=== PATIENT | female | born 1980 ===

== ENCOUNTER → 2018-11-23 | Outpatient (REF) | payer BC | LOC: ZZSTITCHES 10:21 | PROVIDERS: ATTEND Physician Assistant | DX: N91.2 Amenorrhea, unspecified (principal) | CPT/HCPCS: 84703 ==

== ENCOUNTER → 2018-11-29 | Outpatient (CLI) | payer BC ==
[~2018-11-29] MED LIST: PREN-127 PO
[2018-11-29 09:45] LABS: PLATELET COUNT, AUTOMATED 262 K/uL (150-450)
== END ==
LOC: LAB 08:03
PROVIDERS: ATTEND Student in an Organized Health Care Education/Training Program
DX: Z34.81 Encounter for supervision of other normal pregnancy, first trimester (principal); B96.89 Other specified bacterial agents as the cause of diseases classified elsewhere
CPT/HCPCS: 36415; 81001; 84702; 85025; 86592; 86703; 86762; 86850; 86900; 86901; 87077; 87088; 87186; 87340

== ENCOUNTER → 2018-12-03 | Outpatient (CLI) | payer BC | LOC: LAB 09:13 | PROVIDERS: ATTEND Student in an Organized Health Care Education/Training Program | DX: O09.511 Supervision of elderly primigravida, first trimester (principal) | CPT/HCPCS: 87491; 87591 ==

== ENCOUNTER 2018-12-08 22:02 | Emergency (ER) | payer BC ==
--- NOTE | 2018-12-08 22:15 | ER Report ---
History and Physical Time Seen By MD: 22:14 Hx. of Stated Complaint: PATIENT REPORTS BLEEDING AT 6 WEEKS GESTATION THAT STARTED AT 1400. BELIEVES SHE IS HAVING A MISCARRIAGE HPI/ROS CHIEF COMPLAINT: vaginal bleeding, 6 weeks HISTORY OF PRESENT ILLNESS: This is a 38 year old female. She had onset of vaginal bleeding today at about 1400 hours. Is , uncertain exact dates, thinks about 6 weeks, has seen WEIGHT ANALYST with workup for new underway. Having some lower abdominal/pelvic cramping. No problems going to the bathroom with urination or bowels. No fevers or chills. Passes what appeared to be a large clot this afternoon. Allergies: Coded Allergies: No Known Drug Allergies (Unverified , 12/08/18) Home Meds Active Scripts Hydrocodone Bit/Acetaminophen (HYDROCODON-ACETAMINOPHEN 5-325) 1 Each Tablet, 1 EACH PO Q4H PRN for PAIN, #12 TAB 0 Refills Prov:DINA BERNAL MD 12/09/18 Reported Medications Vits W-Ca,Fe,Fa(<1MG) ( VITAMINS) 1 Each Tablet, 1 EACH PO DAILY, TAB 11/29/18 Reviewed Nurses Notes: Yes Smoking Status: Current: Every Day Smoker Exposure to Second Hand Smoke?: No Constitutional Vital Sign - Last 24 Hours 12/08/18 12/08/18 12/08/18 12/08/18 22:02 22:07 22:10 22:30 Temp 98.5 Pulse ??? 89 Resp 15 B/P (MAP) 126/78 126/78 (94) 106/66 (79) Pulse Ox 95 O2 Delivery Room Air 12/08/18 12/08/18 12/08/18 12/08/18 22:32 23:00 23:02 23:07 Pulse 81 86 83 B/P (MAP) 104/78 (87) Pulse Ox 95 94 94 12/08/18 12/09/18 23:37 00:00 Pulse 88 B/P (MAP) 108/94 (99) Pulse Ox 96 Physical Exam General Appearance: Alert, anxious ENT: Moist mucous membranes. Respiratory: Breathing easily. Cardiac: regular rate and rhythm. Normal peripheral perfusion. Gastrointestinal: Abdomen is soft and non tender, no masses, bowel sounds normal. Skin: No rashes or lesions. Pelvic exam: The vulva was normal no lesions. The vagina did not have significant discharge, did have a small amount of brownish blood in posterior vagina. The cervix was closed, small blood oozing. The uterus was normal size and non tender. The adnexa had no masses and no tenderness. The exam was performed with a road cutter. DIFFERENTIAL DIAGNOSIS: After history and physical exam differential diagnosis was considered for vaginal bleeding in , concerning for miscarriage, threatened. Medical Decision Making Data Points Result Diagram: 12/08/18223712/08/182237 Laboratory Hematology Test 12/08/18 22:38 Red Blood Count 4.71 M/uL (4.17-5.56) Mean Corpuscular Volume 90.5 fL (80.0-96.0) Mean Corpuscular Hemoglobin 30.8 pg (26.0-33.0) Mean Corpuscular Hemoglobin Concent 34.1 g/dL (32.0-36.0) Red Cell Distribution Width 13.3 % (11.5-14.5) Mean Platelet Volume 8.3 fL (7.2-11.1) Neutrophils (%) (Auto) 72.7 % (39.4-72.5) Lymphocytes (%) (Auto) 19.8 % (17.6-49.6) Monocytes (%) (Auto) 5.1 % (4.1-12.4) Eosinophils (%) (Auto) 1.3 % (0.4-6.7) Basophils (%) (Auto) 1.1 % (0.3-1.4) Nucleated RBC Relative Count (auto) 0.0 /100WBC Neutrophils # (Auto) 9.8 K/uL (2.0-7.4) Lymphocytes # (Auto) 2.7 K/uL (1.3-3.6) Monocytes # (Auto) 0.7 K/uL (0.3-1.0) Eosinophils # (Auto) 0.2 K/uL (0.0-0.5) Basophils # (Auto) 0.2 K/uL (0.0-0.1) Nucleated RBC Absolute Count (auto) 0.00 K/uL Prothrombin Time 12.6 seconds (12.0-14.4) Prothromb Time International Ratio 0.94 Activated Partial Thromboplast Time 34 seconds (23-35) Sodium Level 138 mmol/L (137-145) Potassium Level 3.6 mmol/L (3.5-5.0) Chloride Level 105 mmol/L (98-107) Carbon Dioxide Level 21 mmol/L (22-31) Blood Urea Nitrogen 6 mg/dl (7-18) Creatinine 0.60 mg/dl (0.52-1.04) Glomerular Filtration Rate Calc > 60.0 Random Glucose 93 mg/dl (75-110) Calcium Level 9.5 mg/dl (8.4-10.2) Total Bilirubin 0.4 mg/dl (0.2-1.3) Aspartate Amino Transf (AST/SGOT) 18 U/L (0-35) Alanine Aminotransferase (ALT/SGPT) 34 U/L (0-56) Alkaline Phosphatase 72 U/L (0-126) Total Protein 7.1 g/dl (6.3-8.2) Albumin 4.3 g/dl (3.5-5.0) Human Chorionic Gonadotropin, Quant 3403 mIU/ml Chemistry Test 12/08/18 22:38 White Blood Count 13.4 k/uL (4.5-11.0) Red Blood Count 4.71 M/uL (4.17-5.56) Hemoglobin 14.5 g/dL (12.0-16.0) Hematocrit 42.6 % (34.0-47.0) Mean Corpuscular Volume 90.5 fL (80.0-96.0) Mean Corpuscular Hemoglobin 30.8 pg (26.0-33.0) Mean Corpuscular Hemoglobin Concent 34.1 g/dL (32.0-36.0) Red Cell Distribution Width 13.3 % (11.5-14.5) Platelet Count 296 K/uL (150-450) Mean Platelet Volume 8.3 fL (7.2-11.1) Neutrophils (%) (Auto) 72.7 % (39.4-72.5) Lymphocytes (%) (Auto) 19.8 % (17.6-49.6) Monocytes (%) (Auto) 5.1 % (4.1-12.4) Eosinophils (%) (Auto) 1.3 % (0.4-6.7) Basophils (%) (Auto) 1.1 % (0.3-1.4) Nucleated RBC Relative Count (auto) 0.0 /100WBC Neutrophils # (Auto) 9.8 K/uL (2.0-7.4) Lymphocytes # (Auto) 2.7 K/uL (1.3-3.6) Monocytes # (Auto) 0.7 K/uL (0.3-1.0) Eosinophils # (Auto) 0.2 K/uL (0.0-0.5) Basophils # (Auto) 0.2 K/uL (0.0-0.1) Nucleated RBC Absolute Count (auto) 0.00 K/uL Prothrombin Time 12.6 seconds (12.0-14.4) Prothromb Time International Ratio 0.94 Activated Partial Thromboplast Time 34 seconds (23-35) Glomerular Filtration Rate Calc > 60.0 Calcium Level 9.5 mg/dl (8.4-10.2) Total Bilirubin 0.4 mg/dl (0.2-1.3) Aspartate Amino Transf (AST/SGOT) 18 U/L (0-35) Alanine Aminotransferase (ALT/SGPT) 34 U/L (0-56) Alkaline Phosphatase 72 U/L (0-126) Total Protein 7.1 g/dl (6.3-8.2) Albumin 4.3 g/dl (3.5-5.0) Human Chorionic Gonadotropin, Quant 3403 mIU/ml Coagulation Test 12/08/18 22:38 Prothrombin Time 12.6 seconds Prothromb Time International Ratio 0.94 Activated Partial Thromboplast Time 34 seconds EKG/Imaging Imaging OB Ultrasound < 14 weeks Additional Pertinent history: Vaginal bleeding. Six-week . COMPARISON STUDIES: December 03, 2018. FINDINGS: Gestational sac: Visualized measuring 2.32 cm in mean sac diameter. Gestational sac appears to demonstrate abnormal funneling. There is a nonspecific adjacent small cystic structure. Yolk sac: Not visualized pole: Not visualized Estimated gestational age: 7 weeks and 3 days based on average sac diameter Uterus: Heterogeneous endometrial material, most compatible with blood products. Maternal ovaries: Corpus luteum within the right ovary. Left ovary is absent. Adnexa: No adnexal mass lesion or focal abnormality. Free pelvic fluid: none IMPRESSION: 1. Findings most compatible with an in progress. There is irregular gestational sac without pole which was present on a prior exam from December 03, 2018. Blood products noted within the mid/lower endometrium. Report Dictated By: Luis Eduardo Gordon MD at 12/08/2018 11:49 PM ED Course/Re-evaluation Clinical Indication for ER IV: IV Access ED Course Labs unremarkable. Patient blood type A positive in OB notes. Ultrasound shows abnormal gestational sac location, debris in uterus and now absent pole, all c/w incomplete miscarriage. Discussed this with the patient. recommended follow-up with Dr. Blunt's office. Discussed what to expect with a miscarriage. Ibuprofen and Lortab as needed for pain. Decision to Disposition Date: Dec 09, 2018 Decision to Disposition Time: 00:04 Depart Departure Latest Vital Signs Vital Signs Date Time Temp Pulse Resp B/P (MAP) Pulse Ox O2 Delivery O2 Flow Rate FiO2 12/09/18 00:00 108/94 (99) 12/08/18 23:37 88 96 12/08/18 22:07 98.5 15 Room Air Impression: Primary Impression: Incomplete miscarriage Condition: Improved Disposition: HOME OR SELF-CARE Referrals: TIM BLUNT DO (PCP) New Scripts Hydrocodone Bit/Acetaminophen (HYDROCODON-ACETAMINOPHEN 5-325) 1 Each Tablet 1 EACH PO Q4H PRN for PAIN, #12 TAB 0 Refills Prov: DIAN BERNAL MD 12/09/18 Patient Instructions: Miscarriage (ED) Additional Instructions: You're having a miscarriage. You can expect passing further blood, clots, and tissue during this time. You can also expect further cramping pelvic pain. Ibuprofen 200mg over the counter tablets, take 4 tablets three times a day with food. Lortab 5/325, one every 4 hours as needed for pain. Call your WEIGHT ANALYST's office in the morning and let them know you're here in the ER and that you're having a miscarriage. DIAN BERNAL MD Dec 08, 2018 22:15
[2018-12-08 22:49] LABS: PLATELET COUNT, AUTOMATED 296 K/uL (150-450)
[2018-12-08 23:06] LABS: INR 0.94
[2018-12-09] VITALS: BP 108/94
--- NOTE | 2018-12-09 00:02 | RADIOLOGY IMAGING REPORT ---
FACILITY: [facility] - [place] PATIENT NAME: Bobbi Pratt : 1980 MR: [id number] V: [id number] EXAM DATE: [id number] ORDERING PHYSICIAN: DIAN BERNAL TECHNOLOGIST: Location: [facility] - [place] Patient: Bobbi Pratt : 1980 Visit/Account:[id number] Date of Sevice: 12/08/2018 OB Ultrasound < 14 weeks Additional Pertinent history: Vaginal bleeding. Six-week . COMPARISON STUDIES: December 03, 2018. FINDINGS: Gestational sac: Visualized measuring 2.32 cm in mean sac diameter. Gestational sac appears to demons trate abnormal funneling. There is a nonspecific adjacent small cystic structure. Yolk sac: Not visualized pole: Not visualized Estimated gestational age: 7 weeks and 3 days based on average sac diameter Uterus: Heterogeneous endometrial material, most compatible with blood products. Maternal ovaries: Corpus luteum within the right ovary. Left ovary is absent. Adnexa: No adnexal mass lesion or focal abnormality. Free pelvic fluid: none IMPRESSION: 1. Findings most compatible with an in progress. There is irregular gestational sac without pole which was present on a prior exam from December 03, 2018. Blood products noted within the mid/ lower endometrium. Report Dictated By: Luis Eduardo Gordon MD at 12/08/2018 11:49 PM Report E-Signed By: Luis Eduardo Gordon MD at 12/08/2018 11:56 PM WSN:[id number]
[2018-12-09] MEDS ORDERED: ACET/HYDROC 5/325MG TH ER ONLY 2 TAB/BOTTLE PO ONE (00:05)
[2018-12-09] MEDS ORDERED: LOR5/325 PO (00:06)
[2018-12-09] MEDS ORDERED: MISO200T59 PV (11:29)
[2018-12-09] MEDS ORDERED: HYDR-653 PO (11:29)
[2018-12-09] MEDS ORDERED: DIA5 PO (11:29)
== END 2018-12-09 00:18 | disposition home or self-care (01) ==
LOC: ER 22:17
DX: O03.4 Incomplete spontaneous abortion without complication (principal)
CPT/HCPCS: 76817; 82040; 82247; 82310; 82374; 82435; 82565; 82947; 84075; 84132; 84155; 84295; 84450; 84460; 84520; 84702; 85025; 85610; 85730; 99284